=== PATIENT | male | born 1965 | race Caucasian/White ===

== ENCOUNTER 2020-06-06 14:15 | Emergency (ER) | payer MEDICAID, OTHER ==
[~2020-06-06] VITALS: Ht 172.7 cm; Wt 97.3 kg
[2020-06-06 15:11] LABS: BASOPHILS % (AUTO) 0 % (0-1); EOSINOPHILS % (AUTO) 5 % (1-7); LYMPHOCYTES % (AUTO) 14 % (22-44); MEAN CORPUSCULAR HEMOGLOBIN 22.7 pg (27.5-34.5); MEAN CORPUSCULAR HGB CONC 30.9 g/dL (33.2-36.2); MEAN PLATELET VOLUME 8.5 fL (7.4-10.4); MONOCYTES % (AUTO) 7 % (2-9); NEUTROPHILS % (AUTO) 74 % (42-75); PLATELET COUNT 219 x10^3/uL (130-400); RED BLOOD COUNT 5.69 x10^6/uL (4.38-5.82); RED CELL DISTRIBUTION WIDTH 16.8 % (9.4-14.8)
[2020-06-06 15:15] LABS: MD MORPH REVIEW ONLY
[2020-06-06 15:25] LABS: ALBUMIN 3.5 g/dL (3.4-5.0); ANION GAP 10 mmol/L (5-15); CALCIUM 8.7 mg/dL (8.5-10.1); CHLORIDE 105 mmol/L (98-107)
[2020-06-06 15:28] LABS: ALANINE AMINOTRANSFERASE 81 U/L (12-78); ALKALINE PHOSPHATASE 93 U/L (45-117); BILIRUBIN,TOTAL 0.5 mg/dL (0.2-1.0); CREATININE 0.85 mg/dL (0.7-1.3); TOTAL PROTEIN 8.3 g/dL (6.4-8.2); TROPONIN I < 0.015 ng/mL (0.000-0.045)
[2020-06-06 16:05] LABS: <PLATELET ESTIMATE> ADEQUATE; <PLT MORPHOLOGY> NORMAL PLT MORPH; ANISOCYTOSIS 1+; OVALOCYTES 1+; POLYCHROMASIA 1+
--- NOTE | 2020-06-06 16:59 | NUR ---
C/O FEELING HOT FLASHES AND "SHAKY HANDS" SINCE FRIDAY, PT REPORTS HE USED [facility]UG SPRAY ON FRIDAY WHEN SYMPTOMS STARTED AND HIS EYES BECAME WATERY. PLACED ON VITALS MONITORS, CALL LIGHT PLACED WITHIN REACH.
[2020-06-06] MEDS ORDERED: THIAMINE 100MG TABLET PO ONE (17:30)
[2020-06-06] MEDS ORDERED: PLEASE ENTER ALLERGIES MC SCH (17:30)
[2020-06-06] MEDS ORDERED: LORazepam 1MG TABLET PO ONE (17:30)
[2020-06-06] MEDS ORDERED: LORazepam 1MG TABLET ONE ×2 (17:31→17:36)
[2020-06-06] MEDS ORDERED: THIAMINE 100MG TABLET ONE (17:31)
[2020-06-06 18:03] VITALS: BP 155/70
== END 2020-06-06 18:07 | disposition home or self-care (01) ==
LOC: ED 17:55
DX: F10.139 Alcohol abuse with withdrawal, unspecified (principal); R94.5 Abnormal results of liver function studies; R42 Dizziness and giddiness; R07.89 Other chest pain; R94.31 Abnormal electrocardiogram [ECG] [EKG]; I10 Essential (primary) hypertension; Y90.0 Blood alcohol level of less than 20 mg/100 ml
CPT/HCPCS: 36415; 71045; 80053; 84443; 84484; 85025; 93005; 99285